=== PATIENT | female | born 1960 | race Caucasian/White ===

== ENCOUNTER 2018-06-02 22:57 | Emergency (ER) | payer OTHER ==
[~2018-06-02] VITALS: Ht 170.2 cm; Wt 72.6 kg
[2018-06-02 23:06] VITALS: BP 168/84
--- NOTE | 2018-06-02 23:56 | PHYS DOC ---
Past Medical History Past Medical History: Hypertension Past Surgical History: Hysterectomy, Tonsillectomy Additional Past Surgical Histo: RIGHT FOOT SX, 3 FOOT AND 1 ANKLE SX ON LEFT, 2 SHOULDER SX LEFT, BRAIN SX Alcohol Use: None Drug Use: None Adult General Chief Complaint Chief Complaint: SORE THROAT HPI HPI Patient is a 58 year old female who presents to the emergency room today with complaints of a burning sensation in her throat after taking her nighttime medications this evening. Patient states she recently started being treated for GERD and high cholesterol. She is taking Crestor and Famotidine. Patient states that drinking water seemed to help the burning sensation go away. She denies any nausea, vomiting, stridor, wheezing, shortness of breath, or difficulty speaking after the event. She states that she possibly had one of the pills get stuck in her throat. She came to the emergency room because she is concerned that this is an allergic reaction to medication Crestor. Patient states that there was a chalky sensation inside of her mouth before she drank the water. Patient currently denies any pain. Review of Systems Review of Systems Constitutional: Denies fever or chills [] HENT: Denies nasal congestion or sore throat, reports burning sensation in throat after taking pills this evening; denies any hemoptysis [] Respiratory: Denies cough, stridor, or shortness of breath [] Cardiovascular: As chest pain GI: Denies abdominal pain, nausea, vomiting, Integument: Denies rash or skin lesions [] Neurologic: Denies headache, focal weakness or sensory changes [] Allergies Allergies Allergies Coded Allergies Type Severity Reaction Last Updated Verified No Known Drug Allergies 06/02/18 No Physical Exam Physical Exam Constitutional: Well developed, well nourished, no acute distress, non-toxic appearance. [] HENT: Normocephalic, atraumatic, bilateral external ears normal, oropharynx moist, posterior pharynx is normal, no oral exudates, nose normal. [] Eyes: Normal Neck: Normal range of motion, no tenderness, no lymphadenopathy, supple, no stridor. [] Cardiovascular:Heart rate regular rhythm, no murmur [] Lungs & Thorax: Bilateral breath sounds clear to auscultation [] Skin: Warm, dry, no erythema, no rash. [] Neurologic: Alert and oriented X 3, normal motor function, normal sensory function, no focal deficits noted. [] Psychologic: Affect normal, judgement normal, mood normal. [] Current Patient Data Vital Signs Vital Signs Date Time Temp Pulse Resp B/P (MAP) Pulse Ox O2 Delivery O2 Flow Rate FiO2 06/02/18 23:06 98.3 63 18 168/84 (112) 97 Room Air 98.3 EKG EKG [] Radiology/Procedures Radiology/Procedures [] Course & Med Decision Making Course & Med Decision Making Pertinent Labs and Imaging studies reviewed. (See chart for details) Patient is a 58-year-old female [facility] burning after taking her medications. Patient was advised to continue taking her medications as prescribed and to take her medications with some food on her stomach. Follow-up with her primary care doctor in the next 1-2 days. Patient verbalized an understanding of home care, medications, follow-up, and return to ED instructions and was in agreement with the plan of care. [] Dragon Disclaimer Dragon Disclaimer This electronic medical record was generated, in whole or in part, using a voice recognition dictation system. Departure Departure Impression: Primary Impression: Burning sensation of throat Disposition: 01 HOME, SELF-CARE Condition: IMPROVED Referrals: NO PCP (PCP) Patient Instructions: Sore Throat, [id number] Additional Instructions: Continue taking her medications as prescribed. I would advise that you take your medications at night with a little bit of food on her stomach. Follow-up with your primary care doctor in the next 1-2 days. Return to the emergency room if her symptoms worsen. TERRELL ALEJANDRA [employer] Jun 02, 2018 23:56
== END 2018-06-03 00:15 | disposition home or self-care (01) ==
LOC: ER 22:57
DX: R09.89 Other specified symptoms and signs involving the circulatory and respiratory systems (principal); I10 Essential (primary) hypertension; E78.00 Pure hypercholesterolemia, unspecified; K21.9 Gastro-esophageal reflux disease without esophagitis
CPT/HCPCS: 99281